=== PATIENT | female | born 1990 | race African-American/Black ===

== ENCOUNTER → 2016-12-14 | Outpatient (REF) | payer OTHER ==
[~2016-12-14] MED LIST: ACET50TA PO; IBUP80TA PO
[2016-12-14 20:12] LABS: ALBUMIN 4.2 GM/DL (3.2-5.2); ALKALINE PHOSPHATASE 37 U/L (45-117); ALT/SGPT 79 U/L (12-78); ANION GAP 6 MEQ/L (8-16); AST/SGOT 27 U/L (15-37); BILIRUBIN,TOTAL 1.2 MG/DL (0.2-1.0); BLOOD UREA NITROGEN 9 MG/DL (7-18); CALCIUM LEVEL 8.9 MG/DL (8.5-10.1); CARBON DIOXIDE LEVEL 28 MEQ/L (21-32); CHLORIDE LEVEL 106 MEQ/L (98-107); CHOLESTEROL LEVEL 174 MG/DL (<200); CREATININE FOR GFR 0.93 MG/DL (0.55-1.02); GLOMERULAR FILTRATION RATE > 60.0 (>60); GLUCOSE, FASTING 83 MG/DL (70-105); POTASSIUM SERUM 4.1 MEQ/L (3.5-5.1); SODIUM LEVEL 140 MEQ/L (136-145); TOTAL PROTEIN 7.7 GM/DL (6.4-8.2); TRIGLYCERIDES LEVEL 48 MG/DL (<150)
[2016-12-14 20:23] LABS: BASO % 0.5 % (0.0-1.0); EOS # 0.1 K/mm3 (0.0-0.50); EOS % 1.2 % (0.0-3.0); LARGE UNSTAINED CELL # 0.1 K/mm3 (0.0-0.4); LARGE UNSTAINED CELL % 1.7 % (0.0-4.0); LYMPH # 1.8 K/mm3 (1.5-6.5); LYMPH % 37.4 % (24.0-44.0); MEAN CORPUSCULAR HEMOGLOBIN 31.8 pg (27.0-33.0); MEAN CORPUSCULAR HGB CONC 31.8 g/dl (32.0-36.5); MEAN CORPUSCULAR VOLUME 99.9 fl (80.0-96.0); MONO # 0.2 K/mm3 (0.0-0.8); MONO % 4.8 % (0.0-5.0); NEUTROPHILS # 2.5 K/mm3 (1.8-7.7); NEUTROPHILS % 54.4 % (36.0-66.0); PLATELET COUNT, AUTOMATED 227 k/mm3 (150-450); RED CELL DISTRIBUTION WIDTH 12.7 % (11.5-14.5); WHITE BLOOD COUNT 4.6 K/mm3 (4.0-10.0)
== END ==
LOC: M LABWUC 19:49
PROVIDERS: ATTEND Family Medicine
DX: Z00.00 Encounter for general adult medical examination without abnormal findings (principal)

== ENCOUNTER → 2017-10-20 | Outpatient (REF) | payer OTHER | LOC: M LAB REF 11:41 | DX: J04.0 Acute laryngitis (principal) ==

== ENCOUNTER → 2017-11-06 | Outpatient (REF) | payer OTHER | LOC: M LAB REF 17:28 | DX: Z01.419 Encounter for gynecological examination (general) (routine) without abnormal findings (principal) ==

== ENCOUNTER → 2018-08-09 | Outpatient (CLI) | payer OTHER ==
[2018-08-09 18:33] LABS: BASO % 0.1 % (0.0-1.0); EOS # 0.1 10^3/uL (0.0-0.50); EOS % 0.7 % (0.0-3.0); HEMATOCRIT 36.1 % (36.0-47.0); LYMPH # 3.2 10^3/uL (1.5-6.5); MEAN CORPUSCULAR HEMOGLOBIN 31.5 pg (27.0-33.0); MEAN CORPUSCULAR HGB CONC 33.2 g/dl (32.0-36.5); MEAN CORPUSCULAR VOLUME 94.8 fl (80.0-96.0); NEUTROPHILS # 7.2 10^3/uL (1.8-7.7); NEUTROPHILS % 61.9 % (36.0-66.0); PLATELET COUNT, AUTOMATED 285 10^3/uL (150-450); RED BLOOD COUNT 3.81 10^6/uL (4.00-5.40); WHITE BLOOD COUNT 11.6 10^3/uL (4.0-10.0)
[2018-08-09 21:30] LABS: CHLAMYDIA DNA AMPLIFICATION NEGATIVE (NEGATIVE); GC DNA AMPLIFICATION NEGATIVE (NEGATIVE)
[2018-08-11 12:36] LABS: HIV 1&2 SCREEN CENTAUR NEGATIVE (NEGATIVE); RUBELLA IgG QUALITATIVE IMMUNE (IMMUNE)
[2018-08-11 12:37] LABS: HEPATITIS C VIRUS ABY INDEX 2.5 INDEX (<0.8)
== END ==
LOC: M SMT 15:12
PROVIDERS: ATTEND Advanced Practice Midwife
DX: Z36.89 Encounter for other specified antenatal screening (principal)

== ENCOUNTER → 2018-11-05 | Outpatient (CLI) | payer OTHER ==
--- NOTE | 2018-11-06 07:49 | REP ---
OB ULTRASOUND: Real-time sonographic evaluation of the gravid uterus is performed. There is a single living intrauterine gestation. The estimated gestational age is 19 weeks 5 days, EDC 03/27/2019. BPD 45 mm = 19 weeks 4 days HC 175 mm = 20 weeks 0 days AC 143 mm = 19 weeks 4 days FL 32 mm = 20 weeks 0 days HC/AC ratio 1.22, within normal range. Estimated weight 316 grams, 61st percentile. Cervix is closed and measures 4.8 cm in length. heart rate 157 beats per minute. SEEN/GROSSLY UNREMARKABLE Lateral ventricles yes Posterior fossa yes Upper lip no Four-chamber heart no LVOT no RVOT no Stomach yes Cord insertion yes Three vessel cord yes Kidneys yes Bladder yes Spine yes position: Transverse with head toward the maternal left side. Placenta: Anterior and grade 0 with no previa or abruption. Amniotic fluid: Within normal limits. Electronically Signed by Sonido Bloom MD 11/10/2018 09:39 A
== END ==
LOC: M RAD 12:07
PROVIDERS: ATTEND Obstetrics & Gynecology
DX: Z34.81 Encounter for supervision of other normal pregnancy, first trimester (principal); Z36.89 Encounter for other specified antenatal screening; Z3A.19 19 weeks gestation of pregnancy

== ENCOUNTER 2018-12-07 03:30 | Outpatient (CLI) | payer OTHER ==
[~2018-12-07] VITALS: Ht 162.6 cm; Wt 97.5 kg
[~2018-12-07 03:30] MED LIST changes: -ACET50TA PO; +MAPA500T17 PO
[2018-12-07 03:46] VITALS: BP 133/80
[2018-12-07] MEDS ORDERED: PRENTAB9 PO (03:59)
[2018-12-07] MEDS ORDERED: LOPERAMIDE 2 MG CAP PO ONE (04:00)
[2018-12-07] MEDS ORDERED: LACTATED RINGER'S 1000 ML IV ONE (04:00)
[2018-12-07] MEDS ORDERED: LR 1,000 ML IV SCH (04:00)
[2018-12-07] MEDS ORDERED: ONDANSETRON 4MG/2ML VIAL (J2405) As Ordered ONE (04:10)
[2018-12-07] MEDS: LOPERAMIDE 2 MG CAP PO PRN ×2 (04:16→07:32)
[2018-12-07] MEDS: ONDANSETRON 4MG/2ML VIAL (J2405) IV PRN ×2 (04:16→07:32)
[2018-12-07 05:02] LABS: INFLUENZA A AMPLIFICATION NEGATIVE (NEGATIVE); INFLUENZA B AMPLIFICATION NEGATIVE (NEGATIVE)
[2018-12-07 06:44] VITALS: BP 114/64
[2018-12-07 07:09] VITALS: BP 132/82
--- NOTE | 2018-12-07 08:48 | IPNPDOC ---
Text Note Date of Service The patient was seen on 12/07/18. NOTE Subjective: Patient is a 28-year-old female who is a at 24 weeks gestation with an MARYJANE of 03/29/19 based off of her 1st trimester ultrasound. She initiated her care in her first trimester. Her has been uncomplicated. She presented to L&D with complaints of nausea, vomiting, and diarrhea since 1400 yesterday. She reports everyone in her house has had these symptoms since Thursday. She denies vaginal bleeding, contractions, leaking of fluid. She reports active movement. Objective: VS: see below. FHR 140. Contractions: none. A+O x2. Respiratory rate is regular. Abdomen: soft with palpation. Assessment: IUP at 24 weeks, nausea, vomiting, diarrhea (viral enteritis) Plan: IV started. LR bolus ordered. Zofran via IV ordered. Imodium ordered. Patient desires to come home. She is instructed to call if she is unable to keep fluids down for 24 hours. Reviewed access to care, movement, labor signs, and danger signs to report. Patient discharged to home with her . She is to follow-up for her routine OB care. VS,Fishbone, I+O VS, Fishbone, I+O Vital Signs Date Time Temp Pulse Resp B/P (MAP) Pulse Ox O2 Delivery O2 Flow Rate FiO2 12/07/18 03:46 97.5 112 133/80 (97) I&O- Last 24 Hours up to 6 AM 12/07/18 06:00 Intake Total 1000 ml Output Total 300 ml Balance 700 ml Item Value Date Time Influenza Type A (RT-PCR) NEGATIVE 12/07/18 0415 Influenza Type B (RT-PCR) NEGATIVE 12/07/18 0415 Respiratory Syncytial Virus (RT-PCR NEGATIVE 12/07/18 0415 CANDACE BECERRIL CNM Dec 07, 2018 08:48
== END 2018-12-07 08:38 | disposition home or self-care (01) ==
LOC: M LDO 03:30
PROVIDERS: ATTEND Advanced Practice Midwife
DX: O99.89 Other specified diseases and conditions complicating pregnancy, childbirth and the puerperium (principal); Z3A.24 24 weeks gestation of pregnancy; A08.4 Viral intestinal infection, unspecified
CPT/HCPCS: 87631; 96360; 96361; 96375; G0378; G0463; J2405

== ENCOUNTER → 2018-12-31 | Outpatient (CLI) | payer OTHER ==
[~2018-12-31] MED LIST changes: +PRENTAB9 PO
[2018-12-31 13:51] LABS: HEMATOCRIT 32.1 % (36.0-47.0); HEMOGLOBIN 10.2 g/dl (12.0-15.5); MEAN CORPUSCULAR HEMOGLOBIN 31.6 pg (27.0-33.0); MEAN CORPUSCULAR HGB CONC 31.8 g/dl (32.0-36.5); MEAN CORPUSCULAR VOLUME 99.4 fl (80.0-96.0); PLATELET COUNT, AUTOMATED 251 10^3/uL (150-450); RED BLOOD COUNT 3.23 10^6/uL (4.00-5.40); WHITE BLOOD COUNT 9.2 10^3/uL (4.0-10.0)
== END ==
LOC: M SMT 10:05
PROVIDERS: ATTEND Advanced Practice Midwife
DX: O99.89 Other specified diseases and conditions complicating pregnancy, childbirth and the puerperium (principal); Z3A.00 Weeks of gestation of pregnancy not specified

== ENCOUNTER → 2019-02-28 | Outpatient (CLI) | payer OTHER | LOC: M SMT 12:02 | PROVIDERS: ATTEND Advanced Practice Midwife | DX: O99.89 Other specified diseases and conditions complicating pregnancy, childbirth and the puerperium (principal); Z3A.00 Weeks of gestation of pregnancy not specified ==

== ENCOUNTER → 2019-02-28 | Outpatient (REF) | payer OTHER | LOC: M LAB REF 17:23 | PROVIDERS: ATTEND Advanced Practice Midwife | DX: O99.89 Other specified diseases and conditions complicating pregnancy, childbirth and the puerperium (principal) ==

== ENCOUNTER 2019-03-17 05:11 | Inpatient (IN) | payer OTHER ==
[~2019-03-17] VITALS: Ht 162.6 cm; Wt 97.3 kg
[2019-03-17] VITALS (28 sets, daily range): BP systolic 79–147; BP diastolic 44–82
[2019-03-17] MEDS ORDERED: FERR325T3 PO (05:36)
[2019-03-17] MEDS ORDERED: PENICILLIN G POTASSIUM IV 5 MU in D5W MINI-BAG PLUS 100 ML IV STA (06:22)
[2019-03-17] MEDS ORDERED: OXYTOCIN DRIP 30 UNITS in APPROPRIATE DILUENT 1 EA IV SCH (06:30)
[2019-03-17 06:42] LABS: HEMOGLOBIN 9.9 g/dl (12.0-15.5); MEAN CORPUSCULAR HGB CONC 31.9 g/dl (32.0-36.5); MEAN CORPUSCULAR VOLUME 87.8 fl (80.0-96.0); PLATELET COUNT, AUTOMATED 237 10^3/uL (150-450); RED BLOOD COUNT 3.53 10^6/uL (4.00-5.40); WHITE BLOOD COUNT 11.8 10^3/uL (4.0-10.0)
--- NOTE | 2019-03-17 07:12 | HPE ---
DATE OF ADMISSION: 03/17/2019 Rosalia is a 28-year-old 3 para 2 002 at 38 and 2/7 weeks gestation. EDC of based on first trimester ultrasound. She presents to labor and delivery today with report of spontaneous rupture of membranes at approximately 03:40. Clear fluid. Reports an occasional contraction continued leakage of fluid. Denies vaginal bleeding. The fetus has been active. care initiated at a woman's perspective in the first trimester. course has been uncomplicated. OBSTETRICAL HISTORY: May 2011 38 weeks, 8 pounds 8 ounces male spontaneous vaginal delivery. June 2013 38 weeks, 6 pounds 7 ounces female spontaneous vaginal delivery. Obstetric labs O+, antibody screen negative, rubella immune, VDRL nonreactive. Urine culture no growth. Hep B surface antigen negative, HIV negative. Hep C antibody nonreactive. Gonorrhea and chlamydia negative genetic serum screenings were declined. Gestational diabetic screening normal at 113 and her GBS is positive. PAST MEDICAL HISTORY: Childhood varicella abnormal Pap smear. Renal calculi. SURGERIES: Lipoma removal. FAMILY HISTORY: Hypertension, diabetes, ovarian cancer, breast cancer. SOCIAL HISTORY: The patient is single however the father of the baby is at bedside and supportive. She is a nonsmoker. Denies alcohol and drug use. History of HPV. Denies history of abuse physical, sexual and emotional also history of chlamydia remote. ALLERGIES: No known drug allergies. CURRENT MEDICATIONS: Zofran as needed and vitamins OBJECTIVE: Blood pressure is 125/74, pulse 87. heart rate is 140 with moderate variability, positive accelerations, no decelerations observed. Contractions are occasional, sterile speculum exam grossly ruptured and positive Nitrazine positive fern. Sterile vaginal exam 2 cm dilated 50% effaced, minus two station. ASSESSMENT: Uterine intrauterine at 38-2/7 weeks. heart rate category one. Premature rupture of membranes. PLAN: Admit the patient to labor and delivery. Routine labs. Out of bed ad fidencio. Clear liquid diet. Start IV antibiotics for GBS prophylaxis Pitocin for labor augmentation. I did review risks, benefits and alternatives with the patient and her partner all their questions have been answered. The patient has been verbally consented for emergency surgery and blood products. I do anticipate labor and a spontaneous vaginal delivery.
[2019-03-17] MEDS: LR 1,000 ML IV SCH ×2 (07:13→11:04)
[2019-03-17] MEDS ORDERED: **PENDING PCN ENTRY XX SCH (09:00)
[2019-03-17] MEDS ORDERED: FENTANYL 2MCG/ML ROPIVACAINE 0.2% IN 0.9% NACL 100ML IVBAG As Ordered ONE (09:59)
[2019-03-17] MEDS ORDERED: PENICILLIN G POTASSIUM IV 2.5 MU in APPROPRIATE DILUENT 1 EA IV SCH (11:00)
[2019-03-17] MEDS ORDERED: ePHEDrine SULFATE 25 MG/5 ML(5MG/ML) SYRINGE As Ordered ONE (11:07)
[2019-03-17] MEDS ORDERED: EPIDURAL/PCA KEYS XX PRN (13:00)
[2019-03-17] MEDS ORDERED: REFRIGERATOR IV KEYS XX PRN (13:00)
[2019-03-17] MEDS ORDERED: LACTATED RINGER'S 1000 ML IV PRN (13:00)
[2019-03-17] MEDS ORDERED: ePHEDrine SULFATE 25 MG/5 ML(5MG/ML) SYRINGE IV PRN (13:00)
[2019-03-17] MEDS ORDERED: ONDANSETRON 4MG/2ML VIAL (J2405) IV PRN ×2 (13:00→14:30)
[2019-03-17] MEDS ORDERED: FENTANYL/ROPIVACAINE/NACL BAG 100 ML EPIDURAL SCH (13:00)
[2019-03-17] MEDS ORDERED: EPIDURAL COMMENT XX SCH (13:00)
[2019-03-17] MEDS ORDERED: NALOXONE INJ 0.4 MG/1 ML VIAL (J2310) IV PRN (13:00)
[2019-03-17] MEDS ORDERED: diphenhydrAMINE INJ 50MG/ML VIAL (J1200) IV PRN (13:00)
[2019-03-17] MEDS ORDERED: DOCUSATE SODIUM 100 MG CAP PO PRN (14:30)
[2019-03-17] MEDS ORDERED: IBUPROFEN 800 MG TAB PO PRN (14:30)
[2019-03-17] MEDS ORDERED: ACETAMINOPHEN TAB 650MG DOSE (2X325MG) PO PRN (14:30)
[2019-03-17] MEDS ORDERED: METHYLERGONOVINE MALEATE 0.2 MG TAB PO PRN (14:30)
[2019-03-17] MEDS ORDERED: DIBUCAINE 1% OINTMENT 30GM TOP PRN (14:30)
[2019-03-17] MEDS ORDERED: RHOGAM 300 MCG (1500 IU) INJ (J2790) IM SCH (14:30)
[2019-03-17] MEDS ORDERED: IBUPROFEN 600 MG TAB PO PRN (14:30)
[2019-03-17] MEDS ORDERED: ACETAMINOPHEN 500 MG TAB PO PRN (14:30)
[2019-03-17] MEDS ORDERED: OXYTOCIN DRIP 30 UNITS in APPROPRIATE DILUENT 1 EA IV ONE (14:30)
[2019-03-17] MEDS ORDERED: MEASLES,MUMPS,RUBELLA VACCINE INJ (MMR-II) (90707) SC SCH (14:30)
[2019-03-18] MEDS ORDERED: PILL CUTTER 1 EACH XX PRN (02:45)
[2019-03-18 05:50] VITALS: BP 114/61
[2019-03-18] MEDS ORDERED: IBUP80TA PO (06:59)
[2019-03-18] MEDS ORDERED: ACET-683 PO (06:59)
[2019-03-18] MEDS ORDERED: PRENATAL VITAMINS CHEWABLE TABLET PO SCH (09:00)
--- NOTE | 2019-03-18 11:10 | DN ---
DATE OF DELIVERY: 03/17/2019 PREDELIVERY DIAGNOSIS: Term in labor. POSTOPERATIVE DIAGNOSIS: Delivered. PROCEDURE: Spontaneous vaginal delivery. FILM PRODUCER: Norman Gordillo MD CATTLE ALLEY WORKER: Juliane Moyer DO ESTIMATED BLOOD LOSS: 300 mL. FINDINGS: 8 pound 4 ounce male infant, scores 8 and 9. DELIVERY SUMMARY: After a short second stage of approximately 10 minutes, the patient spontaneously delivered an 8 pound 4 ounce male , scores 8 and 9, under epidural anesthesia. There was no nuchal cord. The shoulders delivered with ease. The was handed to mother and began to cry quickly. The cord was doubly clamped and cut. The placenta delivered spontaneously, appeared to be intact. There were no vaginal lacerations present. The patient received IV Pitocin immediately after delivery of the placenta. Sponge counts were correct.
== END 2019-03-18 16:15 | disposition home or self-care (01) | DRG 807 ==
LOC: M LDO 05:11 → M LDI 06:17 → M OBS 16:18
PROVIDERS: ADMIT Advanced Practice Midwife; ATTEND Specialist
PROC: 10E0XZZ Delivery of Products of Conception, External Approach (ICD-10-PCS; principal; 2019-03-17)
DX: O42.02 Full-term premature rupture of membranes, onset of labor within 24 hours of rupture (principal); Z37.0 Single live birth; O99.824 Streptococcus B carrier state complicating childbirth; Z3A.38 38 weeks gestation of pregnancy

== ENCOUNTER → 2019-09-13 | Outpatient (REF) | payer OTHER ==
[~2019-09-13] MED LIST changes: +ACET-683 PO; +FERR325T3 PO
== END ==
LOC: M SFHCWAGY 17:18
PROVIDERS: ATTEND Advanced Practice Midwife
DX: Z12.4 Encounter for screening for malignant neoplasm of cervix (principal)
CPT/HCPCS: 87624; G0123

== ENCOUNTER → 2021-07-24 | Outpatient (CLI) | payer OTHER | LOC: M LABSMTC 10:47 | PROVIDERS: ATTEND Pediatrics | DX: Z11.52 Encounter for screening for COVID-19 (principal) ==

== ENCOUNTER → 2022-05-12 | Outpatient (REF) | payer OTHER ==
[2022-05-12 17:31] LABS: BASO % 0.3 % (0.0-1.0); EOS # 0.1 10^3/uL (0.0-0.5); EOS % 0.5 % (0.0-3.0); HEMATOCRIT 41.3 % (36.0-47.0); HEMOGLOBIN 13.1 g/dl (12.0-15.5); LYMPH # 2.8 10^3/uL (1.5-5.0); LYMPH % 29.4 % (24.0-44.0); MEAN CORPUSCULAR HEMOGLOBIN 30.5 pg (27.0-33.0); MEAN CORPUSCULAR HGB CONC 31.7 g/dl (32.0-36.5); MONO # 0.6 10^3/uL (0.0-0.8); MONO % 6.6 % (2.0-8.0); NEUTROPHILS % 62.8 % (36.0-66.0); PLATELET COUNT, AUTOMATED 320 10^3/uL (150-450); WHITE BLOOD COUNT 9.6 10^3/uL (4.0-10.0)
[2022-05-12 17:48] LABS: ALBUMIN 4.2 GM/DL (3.2-5.2); ALT/SGPT 14 U/L (12-78); BILIRUBIN,TOTAL 0.3 MG/DL (0.2-1.0); BLOOD UREA NITROGEN 14 MG/DL (7-18); CALCIUM LEVEL 10.1 MG/DL (8.5-10.1); CARBON DIOXIDE LEVEL 28 MEQ/L (21-32); CHLORIDE LEVEL 104 MEQ/L (98-107); CREATININE FOR GFR 0.75 MG/DL (0.55-1.30); FREE T4 0.88 NG/DL (0.76-1.46); GLOMERULAR FILTRATION RATE > 60.0 (>60); GLUCOSE, FASTING 91 MG/DL (70-100); POTASSIUM SERUM 3.9 MEQ/L (3.5-5.1); SODIUM LEVEL 136 MEQ/L (136-145); TOTAL PROTEIN 8.2 GM/DL (6.4-8.2)
[2022-05-12 17:49] LABS: HEMOGLOBIN A1c 5.8 %
== END ==
LOC: M SFHCCLAY 14:20
PROVIDERS: ATTEND Nurse Practitioner Family
DX: Z00.00 Encounter for general adult medical examination without abnormal findings (principal); Z13.1 Encounter for screening for diabetes mellitus; Z68.31 Body mass index [BMI] 31.0-31.9, adult

== ENCOUNTER → 2023-02-17 | Outpatient (CLI) | payer OTHER ==
[2023-02-17 15:28] LABS: HEMATOCRIT 38.4 % (36.0-47.0); HEMOGLOBIN 12.7 g/dl (12.0-15.5); MEAN CORPUSCULAR HEMOGLOBIN 31.3 pg (27.0-33.0); MEAN CORPUSCULAR HGB CONC 33.1 g/dl (32.0-36.5); MEAN CORPUSCULAR VOLUME 94.6 fl (80.0-96.0); PLATELET COUNT, AUTOMATED 298 10^3/uL (150-450); RED BLOOD COUNT 4.06 10^6/uL (4.00-5.40); WHITE BLOOD COUNT 9.3 10^3/uL (4.0-10.0)
== END ==
LOC: M PLALAB 13:53
PROVIDERS: ATTEND Advanced Practice Midwife
DX: N92.0 Excessive and frequent menstruation with regular cycle (principal); Z12.4 Encounter for screening for malignant neoplasm of cervix

== ENCOUNTER → 2023-03-09 | Outpatient (CLI) | payer OTHER | LOC: M WHC 09:49 | PROVIDERS: ATTEND Advanced Practice Midwife | DX: N92.0 Excessive and frequent menstruation with regular cycle (principal) ==

== ENCOUNTER → 2023-05-13 | Outpatient (REF) | payer OTHER ==
[2023-05-13 18:33] LABS: HEMOGLOBIN A1c 4.9 % (4.0-6.0)
[2023-05-13 18:47] LABS: FREE T4 1.11 NG/DL (0.89-1.76); THYROID STIMULATING HORMONE 1.928 uIU/ML (0.55-4.78)
[2023-05-13 18:48] LABS: ALBUMIN 4.1 G/DL (3.2-5.2); ALKALINE PHOSPHATASE 50 U/L (46-116); ALT/SGPT 14 U/L (7.0-40); AST/SGOT 13 U/L (<34); BILIRUBIN,TOTAL 0.6 MG/DL (0.3-1.2); BLOOD UREA NITROGEN 13 MG/DL (9-23); CALCIUM LEVEL 9.9 MG/DL (8.5-10.1); CARBON DIOXIDE LEVEL 28 MMOL/L (20-31); CHLORIDE LEVEL 104 MMOL/L (98-107); CHOLESTEROL LEVEL 188 MG/DL (<200); CHOLESTEROL RISK RATIO 3.11 (<5); CREATININE FOR GFR 0.71 MG/DL (0.55-1.30); GLOMERULAR FILTRATION RATE > 60.0 (>60); GLUCOSE, FASTING 97 MG/DL (60-100); HDL CHOLESTEROL 60.3 MG/DL (>40); LDL CHOLESTEROL 106.9 MG/DL (<100); NON-HDL-C 127.7 MG/DL; POTASSIUM SERUM 4.1 MMOL/L (3.5-5.1); SODIUM LEVEL 140 MMOL/L (136-145); TOTAL PROTEIN 7.5 G/DL (5.7-8.2); TRIGLYCERIDES LEVEL 104 MG/DL (<150)
== END ==
LOC: M SFHCCLAY 14:16
PROVIDERS: ATTEND Nurse Practitioner Family
DX: Z00.00 Encounter for general adult medical examination without abnormal findings (principal); R73.01 Impaired fasting glucose; Z68.31 Body mass index [BMI] 31.0-31.9, adult

== ENCOUNTER → 2024-04-13 | Outpatient (REF) | payer BC ==
[2024-04-13 11:25] LABS: BASO % 0.6 % (0.0-1.0); EOS # 0.2 10^3/uL (0.0-0.5); EOS % 3.6 % (0.0-3.0); HEMATOCRIT 36.9 % (36.0-47.0); HEMOGLOBIN 12.3 g/dl (12.0-15.5); LYMPH # 2.5 10^3/uL (1.5-5.0); LYMPH % 36.6 % (24.0-44.0); MEAN CORPUSCULAR HEMOGLOBIN 31.3 pg (27.0-33.0); MEAN CORPUSCULAR HGB CONC 33.3 g/dl (32.0-36.5); MEAN CORPUSCULAR VOLUME 93.9 fl (80.0-96.0); MONO # 0.5 10^3/uL (0.0-0.8); MONO % 7.6 % (2.0-8.0); NEUTROPHILS # 3.5 10^3/uL (1.5-8.5); NEUTROPHILS % 51.3 % (36.0-66.0); PLATELET COUNT, AUTOMATED 336 10^3/uL (150-450); RED BLOOD COUNT 3.93 10^6/uL (4.00-5.40); WHITE BLOOD COUNT 6.7 10^3/uL (4.0-10.0)
[2024-04-13 11:32] LABS: ALBUMIN 4.1 G/DL (3.2-5.2); ALKALINE PHOSPHATASE 53 U/L (46-116); ALT/SGPT 15 U/L (7.0-40); AST/SGOT 9 U/L (<34); BILIRUBIN,TOTAL 0.6 MG/DL (0.3-1.2); BLOOD UREA NITROGEN 12 MG/DL (9-23); CALCIUM LEVEL 9.6 MG/DL (8.5-10.1); CARBON DIOXIDE LEVEL 28 MMOL/L (20-31); CHLORIDE LEVEL 106 MMOL/L (98-107); CHOLESTEROL LEVEL 183 MG/DL (<200); CHOLESTEROL RISK RATIO 3.44 (<5); CREATININE FOR GFR 0.74 MG/DL (0.55-1.30); GLOMERULAR FILTRATION RATE > 60.0 (>60); GLUCOSE, FASTING 89 MG/DL (60-100); HDL CHOLESTEROL 53.1 MG/DL (>40); LDL CHOLESTEROL 111.9 MG/DL (<100); NON-HDL-C 129.9 MG/DL; POTASSIUM SERUM 3.7 MMOL/L (3.5-5.1); SODIUM LEVEL 139 MMOL/L (136-145); THYROID STIMULATING HORMONE 2.226 uIU/ML (0.55-4.78); TOTAL PROTEIN 7.7 G/DL (5.7-8.2); TRIGLYCERIDES LEVEL 90 MG/DL (<150)
[2024-04-13 11:33] LABS: FREE T4 1.18 NG/DL (0.89-1.76)
[2024-04-13 11:47] LABS: HEMOGLOBIN A1c 5.4 % (4.0-6.0)
== END ==
LOC: M SFHCCLAY 08:24
PROVIDERS: ATTEND Nurse Practitioner Family
DX: Z00.00 Encounter for general adult medical examination without abnormal findings (principal); Z13.1 Encounter for screening for diabetes mellitus; R73.01 Impaired fasting glucose; Z68.31 Body mass index [BMI] 31.0-31.9, adult